=== PATIENT | female | born 1955 | race Caucasian/White ===

== ENCOUNTER → 2017-02-20 | Outpatient (CLI) | payer BC | LOC: BMCIMAGING 16:11 | PROVIDERS: ATTEND Emergency Medicine | DX: S59.902A Unspecified injury of left elbow, initial encounter (principal) ==

== ENCOUNTER → 2017-03-31 | Outpatient (CLI) | payer BC | LOC: BMCIMAGING 13:39 | PROVIDERS: ATTEND Family Medicine | DX: Z12.31 Encounter for screening mammogram for malignant neoplasm of breast (principal) | CPT/HCPCS: G0202 ==

== ENCOUNTER → 2017-04-08 | Outpatient (CLI) | payer BC | LOC: BMCIMAGING 10:19 | PROVIDERS: ATTEND Family Medicine | DX: Z12.39 Encounter for other screening for malignant neoplasm of breast (principal); R92.8 Other abnormal and inconclusive findings on diagnostic imaging of breast | CPT/HCPCS: G0206 ==

== ENCOUNTER → 2018-07-01 | Outpatient (CLI) | payer BC | LOC: BMCIMAGING 12:40 | PROVIDERS: ATTEND Family Medicine | DX: Z12.31 Encounter for screening mammogram for malignant neoplasm of breast (principal) ==